=== PATIENT | male | born 1940 | race Caucasian/White ===

== ENCOUNTER → 2022-01-30 15:01 | Outpatient (CLI) | payer MEDICARE, SELFPAY ==
--- NOTE | ~2022-01-30 | XR_ITS ---
XR shoulder RT min 2V DATE: 01/30/2022 15:40 INDICATION: Right shoulder pain TECHNIQUE: 5 views COMPARISON: 07/27/2019 CT right shoulder arthrogram FINDINGS: There is osteopenia. No fracture or dislocation, periosteal reaction or bone destruction. N ormal alignment at the acromioclavicular and glenohumeral joints. IMPRESSION: Osteopenia Reviewed, dictated and finalized at location A. IMPRESSION: Osteopenia
== END ==
PROVIDERS: PCP Physician Assistant; Visit Provider Physician Assistant
DX: M25.511 Pain in right shoulder (principal); M85.811 Other specified disorders of bone density and structure, right shoulder
CPT/HCPCS: 73030

== ENCOUNTER 2022-05-30 09:14 | Outpatient (CLI) | payer MEDICARE, SELFPAY ==
--- NOTE | ~2022-05-30 | US_ITS ---
EXAMINATION:US venous doppler LE RT INDICATION:Lower extremity edema TECHNIQUE: Multiple grayscale, color flow and Doppler images of the right lower extremity deep venous systems were obtained and reviewed. COMPARISON:No prior studies for comparison. FINDINGS: The common femoral, superficial femoral and popliteal veins demonstrate normal respiratory variation, augmentation and compressibility. Color flow is also seen within the posterior tibial, pe roneal, greater saphenous and profunda veins. IMPRESSION: 1: No lower extremity deep venous thrombosis. Reviewed, dictated and finalized at location A.
--- NOTE | ~2022-05-30 | US_ITS ---
EXAMINATION: US arterial ankle brachial ind DATE: 05/30/2022 10:57 INDICATION: Peripheral vascular disease. Lower limb swelling and edema. TECHNIQUE: Segmental pressures and plethysmographic and Doppler waveforms of the brachial and lower e xtremity arteries were obtained. COMPARISON: 08/09/2014 FINDINGS: Right and left brachial artery pressures of 115 mm Hg and 127 mm Hg, respectively, are concordant (no rmal difference <= 30 mmHg). The right ankle-brachial index (GM) is unable to be obtained due to inability to occlude the vessels at the right ankle (normal >= 0.9-1.0). The right great toe-brachial index (TBI) is 0.71 (normal >= 0.65). Arterial Doppler waveforms are biphasic with brisk systolic upstrokes at both right posterior tibial and dorsalis pedis arteries. The left GM is also unable to be obtained due to inability to occlude the vessels at the left ankle. The left TBI is 0.75. Arterial Doppler waveforms are biphasic with brisk systolic upstrokes at both left posterior tibial and dorsalis pedis arteries. IMPRESSION: 1. No significant arterial occlusive disease to either lower limb with normal bilateral TBI's. Reviewed, dictated and finalized at location A. IMPRESSION: 1. No significant arterial occlusive disease to either lower limb with normal b ilateral TBI's.
== END 2022-05-30 09:15 | disposition home or self-care (01) ==
PROVIDERS: PCP Family Medicine; Visit Provider Family Medicine
DX: R60.0 Localized edema (principal); M79.604 Pain in right leg; I73.9 Peripheral vascular disease, unspecified
CPT/HCPCS: 93922; 93971